=== PATIENT | male | born 1995 | race Caucasian/White ===

== ENCOUNTER 2022-01-17 10:28 | Emergency (ER) | payer SELFPAY ==
[~2022-01-17] VITALS: Ht 182.9 cm; Wt 81.6 kg
[2022-01-17] MEDS ORDERED: HALOPERIDOL LACTATE 5 MG/1 ML VIAL IM ONE ×2 (10:30→23:45)
[2022-01-17] MEDS ORDERED: LORAZEPAM 2 MG/1 ML VIAL IM ONE ×2 (10:30→23:45)
[2022-01-17] MEDS ORDERED: IV NORMAL SALINE 1000 ML BAG IV ONE ×2 (10:30)
[2022-01-17] MEDS ORDERED: diphenhydrAMINE 50 MG/1 ML VIAL IM ONE ×2 (10:30→23:45)
[2022-01-17] MEDS ORDERED: diphenhydrAMINE 50 MG/1 ML VIAL ONE ×2 (10:36→23:46)
[2022-01-17] MEDS ORDERED: HALOPERIDOL LACTATE 5 MG/1 ML VIAL ONE ×2 (10:36→23:46)
[2022-01-17 10:59] LABS: HEMATOCRIT 34.1 % (36.7-47.1); MEAN CORPUSCULAR HEMOGLOBIN 29.6 uug (23.8-33.4); MEAN CORPUSCULAR VOLUME 84.2 fL (73.0-96.2); PLATELET COUNT (AUTO) 398 K/uL (152-348)
[2022-01-17 11:07] LABS: CARBON DIOXIDE 25 mmol/L (21-32); CHLORIDE 101 mmol/L (98-107); CREATININE 1.4 mg/dL (0.6-1.3); GLUCOSE 98 mg/dL (74-106); POTASSIUM 3.3 mmol/L (3.5-5.1); UREA NITROGEN, BLOOD 25 mg/dL (7-18)
[2022-01-17 11:16] LABS: ALANINE AMINOTRANSFERASE 43 U/L (16-63); ALKALINE PHOSPHATASE 83 U/L (50-136); ASPARTATE AMINOTRANSFERASE 47 U/L (15-37); BILIRUBIN,DIRECT 0.2 mg/dL (0.0-0.2); BILIRUBIN,TOTAL 0.9 mg/dL (0.2-1.0); TOTAL PROTEIN, SERUM 6.9 g/dL (6.4-8.2)
[2022-01-17 11:20] LABS: THYROID STIMULATING HORMONE 0.584 mIU/mL (0.358-3.740)
[2022-01-17 11:24] LABS: ACETAMINOPHEN < 2.0 ug/mL (10-30)
[2022-01-17] MEDS ORDERED: MAGNESIUM SULFATE 2 GM in IV DEXTROSE 5% 100 ML IV ONE (11:45)
[2022-01-17 11:52] LABS: ETHANOL < 3 MG/DL (0-0)
--- NOTE | 2022-01-17 13:30 | NUR ---
SOFT WRIST RESTRAINTS DC. DR DOUGLAS
[2022-01-17 17:00] LABS: *BILIRUBIN,URIN NEGATIVE (NEGATIVE); *BLOOD, URINE NEGATIVE (NEGATIVE); *CLARITY,URINE CLEAR (CLEAR); *COLOR,URINE YELLOW (YELLOW); *KETONES,URINE 1+ (NEGATIVE); *UROBILINOGEN,URINE 0.2 E.U./dl (NORMAL); LEUKOCYTE ESTERASE ,URINE NEGATIVE (NEGATIVE); NITRITE, URINE NEGATIVE (NEGATIVE); PH,URINE 5.5 (5.0-8.0); UGLUCOSE NEGATIVE (NEGATIVE)
[2022-01-17 17:09] LABS: *AMPHETAMINE, URINE POSITIVE (NEGATIVE); *CANNABINOID, URINE POSITIVE (NEGATIVE); *COCCAINE, URINE NEGATIVE (NEGATIVE); *OPIATE, URINE NEGATIVE (NEGATIVE); *PHENCYCLIDINE SCREEN,URINE NEGATIVE (NEGATIVE)
--- NOTE | 2022-01-17 18:02 | NUR ---
Patient is resting comfortably in bed with eyes closed
--- NOTE | 2022-01-17 19:13 | NUR ---
Report recived from Riaz MARSH. Pt is in bed resting with head under the covers at this time. No distress noted.
--- NOTE | 2022-01-17 19:34 | NUR ---
Spoke with Lory to come reevaluate patient
[2022-01-17] MEDS ORDERED: LORAZEPAM 2 MG/1 ML VIAL ONE (23:46)
--- NOTE | 2022-01-18 07:55 | NUR ---
Patient is sleeping, arouses easily. Will not talk or tell me his name yet. Vital signs stable
--- NOTE | 2022-01-18 09:44 | NUR ---
Unable to perform suicide screening because patient will not answer any questions I ask and will not tel me his name
--- NOTE | 2022-01-18 10:55 | NUR ---
manager mac/SW here speaking to patient
--- NOTE | 2022-01-18 12:31 | NUR ---
patient was sitting up eating food and drinking water
--- NOTE | 2022-01-18 13:22 | NUR ---
Patient is sleeping, VSS
--- NOTE | 2022-01-18 15:07 | NUR ---
Social work consult was requested for patient on a 5150 hold written by MARTY in the ED. Patient is 26-year-old white male admitted to the ED for altered level of consciousness. Upon social service assistant assessment, patient is alert and oriented X1 (time). Patient was unable to state his name, situation, and place. Patient appears lethargic. Patient did not provide appropriate eye contact throughout the interview. Patient presents with a dysphoric mood and congruent affect. Patient appears unkempt. Patient presents with poor judgment and insight. SW explored patients social support. Patient states he does not have any social support. SW explored patients living situation. Patient stated he is currently homeless and living around [facility]. Patient states he has been homeless for 2 years. SW offered [place] [address] ([phone]). Patient will be discharged when more awake and alert. Homeless waiver was signed and given to the patient and a copy was placed in the chart. Patient will be offered a TAP card if needed. Patient reports that he is ambulatory. Patient reports he does not require the use of DMEs. SW explored patients history of substance abuse. Patient denies substance use. The toxicology screen indicates that the patient is positive for amphetamine, benzodiazepine, and cannabinoids. Patient denies history of psychiatric diagnosis. Patient denies visual and auditory hallucinations. Patient denies suicidal or homicidal ideation. The discharge plan is to potentially break the 5150 hold on this patient.
--- NOTE | 2022-01-18 16:14 | NUR ---
Patient is awake now. He is off the 5150 hold per doctor and Ida. He ambulated to the bathroom with steady gait and voided urine. He ate another meal and drank water. I gave him some clean clothes, a t shirt and shorts to wear and socks. IV DC'd
--- NOTE | 2022-01-18 16:16 | NUR ---
Patient states "no" when I ask do you wih to be ". and denies suicidal ideation
--- NOTE | 2022-01-18 16:25 | NUR ---
IV removed. Catheter intact and site benign. Pressure and 4x4 gauze applied to site. No bleeding noted.
--- NOTE | 2022-01-18 16:25 | NUR ---
DC and follow up instructions given and explained to patient who states he understands all instructions
== END 2022-01-18 16:29 | disposition home or self-care (01) ==
LOC: ER 10:28 → EDBD 10:28 → ER 01-18 16:29
DX: R41.82 Altered mental status, unspecified (principal); R46.2 Strange and inexplicable behavior; F15.129 Other stimulant abuse with intoxication, unspecified; F19.90 Other psychoactive substance use, unspecified, uncomplicated; R94.31 Abnormal electrocardiogram [ECG] [EKG]; E87.2 Acidosis; R79.89 Other specified abnormal findings of blood chemistry
CPT/HCPCS: 36415; 70450; 71045; 80048; 80076; 80299; 80307; 80320; 81003; 82140; 82550 ×2; 82962 ×2; 83605 ×2; 84443; 84484; 85025; 87040 ×2; 93005 ×2; 96361; 96365; 96372; 99291; J1200 ×2; J1630 ×2; J2060; J3475; J7040; A4663; G0480